=== PATIENT | female | born 1990 | race Hispanic/Latino ===

== ENCOUNTER 2018-09-06 05:06 | Emergency (ER) | payer OTHER ==
[2018-09-06 05:31] LABS: Bilirubin Negative (Negative); Blood, Urine Moderate (Negative); Clarity Clear (Clear); Glucose, Urine (Dipstick) Negative (Negative); Leukocyte Small (Negative); Nitrite Negative (Negative); Protein, Urine (Dipstick) Negative (Neg-Trace); Specific Gravity, Urine 1.025 (1.005-1.030); Urobilinogen 0.2 mg/dL (0.2-1.0)
[2018-09-06 05:34] LABS: Pregnancy Test - Urine (BHCG) Negative (Negative); Pregu Control Background? CLEAR/WHITE (CLR/WHITE); Pregu Control Bar Appear? YES (CONTROL BAR); Specific Gravity 1.025 (1.002-1.036)
[2018-09-06] MEDS ORDERED: Ketorolac Tromethamine 30 MG/ML VIAL ONE (05:37)
[2018-09-06] MEDS ORDERED: Ondansetron PF 4 MG/2 ML Vial ONE (05:37)
[2018-09-06] MEDS ORDERED: Morphine 10 MG/ML VIAL ONE (05:37)
[2018-09-06 05:38] LABS: Bacteria/HPF 2+ HPF (None Seen)
[2018-09-06 05:39] LABS: Hyaline Casts/LPF NONE SEEN LPF (0-3 Hyaline)
[2018-09-06 05:42] LABS: #Basophils 0.1 thou/uL (0.0-0.2); #Eosinphils 0.1 thou/uL (0.0-0.7); #Lymphocytes 2.9 thou/uL (1.20-3.40); #Monocytes 0.6 thou/uL (0.11-0.59); #Neutrophils 5.8 thou/uL (1.40-6.50); %Basophils 0.8 % (0.0-1.0); %Eosinophils 0.6 % (0.0-10.0); %Lymphocytes 30.4 % (21.0-51.0); %Monocytes 6.8 % (0.0-10.0); %Neutrophils 61.5 % (42.0-75.0); Hemoglobin 13.3 g/dL (12.0-16.0); Mean Corpuscular HGB CONC 33.2 g/dL (32.0-36.0); Mean Corpuscular Hemoglobin 32.2 pg (27.0-31.0); Mean Corpuscular Volume 97.1 fL (78.0-98.0); Mean Platelet Volume 11.4 fL (7.4-10.4); Platelet Count 187 thou/uL (130-400); RBC Distribution Width 12.4 % (11.5-14.5); Red Blood Cell (RBC) Count 4.12 mill/uL (4.20-5.40); White Blood Cell (WBC) Count 9.4 thou/uL (4.8-10.8)
[2018-09-06 05:56] LABS: ALT (SGPT) 13 U/L (8-55); AST (SGOT) 14 U/L (5-34); Albumin 4.4 g/dL (3.5-5.0); Alkaline Phosphatase 63 U/L (40-150); Anion Gap 14 mmol/L (10-20); BUN (Urea Nitrogen) 15 mg/dL (7.0-18.7); Bilirubin, Total 0.6 mg/dL (0.2-1.2); Calc. Creatinine Clearance 0 mL/min (70-130); Calcium 9.3 mg/dL (7.8-10.44); Carbon Dioxide 21 mmol/L (22-29); Chloride 107 mmol/L (98-107); Estimated GFR-MDRD 89; Glucose 119 mg/dL (70-105); Potassium 3.7 mmol/L (3.5-5.1); Protein, Total 7.4 g/dL (6.0-8.3); Sodium 138 mmol/L (136-145)
[2018-09-06] MEDS ORDERED: Morphine 4 MG/ML VIAL ONE ×2 (06:16→07:18)
[2018-09-06] MEDS ORDERED: Sodium Chloride 0.9% 1,000 ML BAG ONE (06:52)
[2018-09-06] MEDS ORDERED: Sodium Chloride 0.9% 100 ML ONE (07:13)
[2018-09-06] MEDS ORDERED: cefTRIAXone\\ROCEPHIN 1 GM VIAL ONE (07:13)
[2018-09-06] MEDS ORDERED: Ibuprofen 800 MG TAB ONE (07:18)
--- NOTE | 2018-09-06 07:41 | CT ---
CT OF THE ABDOMEN AND PELVIS WITHOUT IV COTNRAST: INDICATION: Left-sided flank pain with vomiting. Concern for possible stone. COMPARISON: Prior exam dated 03/02/2015. FINDINGS: There is a 2.4 mm stone at the right UVJ causing mild right hydronephrosis. No additional renal or u reteral calculus is evident. The unopacified liver, spleen, pancreas, and adrenal glands appear within normal limits. Unopacified small and large bowel appear within normal limits. The splenic flexure, descending colon , and sigmoid colon are largely decompressed. There is a 2.7 cm hypodensity involving the left adnexa that is incompletely characterized and may re flect a follicular cyst. There is a small amount of free fluid present within the pelvis. No definite acute osseous abnormality is evident. IMPRESSION: 1. A 2.4 mm right ureterovesical junction calculus causing mild right hydronephrosis. 2. A 2.7 cm hypodensity within the left adnexa may reflect a follicular cyst. If clinically indicat ed, a followup pelvic ultrasound may be helpful for improved characterization. 3. A small amount of free fluid in the pelvis. POS: [facility]
== END 2018-09-06 08:19 | disposition home or self-care (01) ==
LOC: MADERS 05:06
DX: N13.2 Hydronephrosis with renal and ureteral calculous obstruction (principal)
CPT/HCPCS: 74176; 80053; 81001; 81025; 85025; 96365; 96375; 96376; J0696; J1885; J2270; J2405; J7050